=== PATIENT | female | born 2000 | race Hispanic/Latino ===

== ENCOUNTER 2022-03-05 16:54 | Emergency (ER) | payer BC ==
[2022-03-05 17:37] LABS: Bilirubin Neg (Negative); Blood, Urine 10 (Negative); Clarity Slightly Cloudy (Clear); Glucose, Urine (Dipstick) Normal (Negative); Ketone, Urine 5 mg/dL (Negative); Leukocyte 25 (Negative); Nitrite Negative (Negative); Protein, Urine (Dipstick) 30 mg/dl (Neg-Trace)
[2022-03-05 17:44] LABS: Pregnancy Test - Urine (BHCG) Negative (Negative); Pregu Control Background? CLEAR/WHITE (CLR/WHITE); Pregu Control Bar Appear? YES (CONTROL BAR)
[2022-03-05 17:47] LABS: Bacteria/HPF 2+ HPF (None Seen)
[2022-03-05 17:48] LABS: Mucous/LPF 2+ LPF (<2+)
[2022-03-05] MEDS ORDERED: Ondansetron ODT 4 MG TAB ONE (18:07)
[2022-03-05] MEDS ORDERED: Mag-Al Plus 1200 MG/1200 MG/120 MG/30 ML UDCUP ONE (18:08)
[2022-03-05] MEDS ORDERED: Lidocaine Viscous Sol 2% 15 ml UD Cup ONE (18:08)
[2022-03-05] MEDS ORDERED: Sucralfate 1 GM/10 ML UDCUP ONE (18:09)
[2022-03-05 18:13] LABS: #Eosinphils 0.1 10x3/uL (0.0-0.5); #Monocytes 0.4 10x3/uL (0.0-1.1); #Neutrophils 3.2 10x3/uL (1.5-8.4); %Basophils 0.7 % (0.0-2.0); %Eosinophils 1.5 % (0.0-6.0); %Lymphocytes 37.4 % (18.0-47.0); %Monocytes 6.3 % (0.0-10.0); %Neutrophils 53.8 % (40.0-75.0); Hemoglobin 13.4 g/dL (12.0-15.5); Mean Corpuscular HGB CONC 33.6 g/dL (32.0-36.0); Mean Corpuscular Hemoglobin 28.9 pg (27.0-33.0); Mean Platelet Volume 9.6 fl (7.4-10.4); Platelet Count 295 10x3/uL (150-450); RBC Distribution Width 12.5 % (11.5-14.5); Red Blood Cell (RBC) Count 4.64 10x6/uL (3.90-5.03)
[2022-03-05 18:27] LABS: ALT (SGPT) 20 U/L (8-55); AST (SGOT) 27 U/L (5-34); Albumin 4.1 g/dL (3.5-5.0); Alkaline Phosphatase 46 U/L (40-110); Anion Gap 14 mmol/L (10-20); BUN (Urea Nitrogen) 11 mg/dL (7.0-18.7); Bilirubin, Total 0.4 mg/dL (0.2-1.2); Calc. Creatinine Clearance 0 mL/min (70-130); Calcium 9.4 mg/dL (7.8-10.44); Carbon Dioxide 24 mmol/L (22-29); Chloride 105 mmol/L (98-107); Estimated GFR 106; Globulin 3.1 g/dL (2.4-3.5); Glucose 92 mg/dL (70-105); Lipase 45 U/L (8-78); Potassium 3.7 mmol/L (3.5-5.1); Protein, Total 7.2 g/dL (6.0-8.3); Sodium 139 mmol/L (136-145)
== END 2022-03-05 19:06 | disposition home or self-care (01) ==
LOC: CSHERS 16:54
DX: R10.13 Epigastric pain (principal); R11.0 Nausea
CPT/HCPCS: 80053; 81003; 81015; 81025; 83690; 85025; 99284; Q0162